=== PATIENT | female | born 2005 | race Hispanic/Latino ===

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

== ENCOUNTER 2023-11-17 13:31 | Emergency (ER) | payer OTHER ==
[2023-11-17] MEDS ORDERED: Dexamethasone 10 MG/ML VIAL ONE (14:35)
[2023-11-17] MEDS ORDERED: Ketorolac Tromethamine 30 MG (1 mL) VIAL ONE (14:35)
[2023-11-17 14:38] LABS: Influenza A by NAA Not Detected (NotDetected); Influenza B by NAA Not Detected (NotDetected); SARS-CoV-2 NAA Rapid Test Not Detected (NotDetected)
== END 2023-11-17 15:42 | disposition home or self-care (01) ==
LOC: MADERS 13:31
DX: J06.9 Acute upper respiratory infection, unspecified (principal); R50.9 Fever, unspecified
CPT/HCPCS: 87081; 87430; 96372; 99283; J1100; J1885

== ENCOUNTER 2025-03-17 17:45 | Emergency (ER) | payer OTHER ==
[2025-03-17] MEDS ORDERED: Ibuprofen 600 MG TAB ONE (21:10)
== END 2025-03-17 21:14 | disposition home or self-care (01) ==
LOC: MADERS 17:45
DX: S70.361A Insect bite (nonvenomous), right thigh, initial encounter (principal); W57.XXXA Bitten or stung by nonvenomous insect and other nonvenomous arthropods, initial encounter
CPT/HCPCS: 99281